=== PATIENT | female | born 2000 | race Two or more races ===

== ENCOUNTER → 2023-09-02 | Emergency (ER) | payer OTHER ==
[~2023-09-02] VITALS: Ht 162.6 cm; Wt 59.0 kg
[2023-09-02 09:55] LABS: HEMOGLOBIN 13.5 g/dL (12.0-15.00); MEAN CELL VOLUME 81.8 fL (80.00-100.00); MEAN CORPUSCULAR HEMOGLOBIN 28.4 pg (27.00-32.0); MEAN CORPUSCULAR HGB CONC 34.7 g/dl (32.0-36.0); PLATELET COUNT 296 K/uL (150-450); RED BLOOD COUNT 4.77 M/uL (4.00-6.00); RED CELL DISTRIBUTION WIDTH 14.3 % (11.5-14.5)
[2023-09-02 10:32] LABS: ALBUMIN 4.3 gm/dL (3.4-5.0); BILIRUBIN TOTAL 0.53 mg/dL (0.3-1.2); CALCIUM 9.8 mg/dL (8.5-10.1); CREATININE SERUM 0.6 mg/dL (0.55-1.02); GFR 127.45; GLOBULINA 3.6 G/DL (2.4-3.5); POTASSIUM 3.81 mEq/L (3.5-5.1); TOTAL PROTEIN 7.9 gm/dL (6.4-8.2)
== END | disposition home or self-care (01) ==
LOC: EMR PED 07:44
PROVIDERS: Emergency Medicine Pediatric Emergency Medicine
DX: I88.0 Nonspecific mesenteric lymphadenitis (principal); R10.9 Unspecified abdominal pain; Z20.822 Contact with and (suspected) exposure to COVID-19